=== PATIENT | female | born 1995 | race Caucasian/White ===

== ENCOUNTER 2024-09-18 15:40 | Emergency (ER) | payer OTHER ==
[~2024-09-18] VITALS: Ht 167.6 cm; Wt 122.5 kg
[2024-09-18 15:55] VITALS: BP 154/65; TEMP 98.3
[2024-09-18] MEDS ORDERED: SULF1TAB48 PO (16:03)
[2024-09-18] MEDS ORDERED: CEPH-570 PO (16:03)
[2024-09-18 18:33] VITALS: O2SAT 99
== END 2024-09-18 18:35 | disposition home or self-care (01) ==
LOC: ER 15:49
DX: L03.115 Cellulitis of right lower limb (principal)